=== PATIENT | female | born 1970 | race Caucasian/White ===

== ENCOUNTER 2016-11-23 11:18 | Emergency (ER) | payer MEDICAID, OTHER ==
[2016-11-23 11:59] LABS: BILIRUBIN,URINE NEGATIVE (NEGATIVE); PH,URINE 5.5 PH (5.0-7.5)
[2016-11-23 12:02] LABS: HCG UR QUAL NEGATIVE; UA CHARGE (STRIP ONLY) YES; UR CULTURE IF IND NOT INDICATED
[2016-11-23] MEDS ORDERED: CYCLOBENZAPRINE 10 MG TABLET PO STA (12:33)
[2016-11-23] MEDS ORDERED: ONDANSETRON 4 MG/2 ML VIAL IVP STA (12:33)
[2016-11-23] MEDS ORDERED: SUMAtriptan 6 MG/0.5 ML VIAL SUBQ STA (12:33)
[2016-11-23] MEDS ORDERED: KETOROLAC 60 MG/2 ML VIAL IVP STA (12:33)
[2016-11-23] MEDS ORDERED: SODIUM CHLORIDE 0.9% 1,000 ML IV ONE (12:33)
--- NOTE | 2016-11-23 12:37 | ED Physician Documentation ---
PD HPI UPPER EXT INJURY - Stated complaint Stated Complaint: NICOLE,N/V, RT SHOULDER INJ - Chief complaint Chief Complaint: Ext Problem - History obtained from History obtained from: Patient - Additonal information Additional information: 46-year-old woman with history of migraines presents with 3 weeks of atraumatic right shoulder pain worse with abduction. The pain is sharp and across the top and sometimes feels the whole right hand going home. Pain radiates into the neck and causes neck spasms and over the last couple of days has caused her usual gradual onset migraine with vomiting. 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 EXHIBIT TECHNICIAN: Hysterectomy - Present Medications Home Medications: Ambulatory Orders Medication Instructions Recorded Confirmed Ondansetron HCl [Zofran] 4 mg PO DAILY 11/04/15 11/23/16 Sumatriptan [Imitrex] 25 mg PO ONCE 11/04/15 11/23/16 Cyclobenzaprine [Flexeril] 10 mg PO TID PRN #20 tablet 11/23/16 Ibuprofen 800 mg PO TID 11/23/16 11/23/16 Oxycodone HCl/Acetaminophen 1 - 2 tab PO Q4H PRN #15 tablet 11/23/16 [Percocet 5-325 mg Tablet] Physical Therapy 1 tu TD ONCE #1 11/23/16 - Allergies Allergies/Adverse Reactions: Allergies Allergy/AdvReac Type Severity Reaction Status Date / Time haloperidol [From Haldol] Allergy Unknown Verified 11/23/16 11:29 haloperidol lactate * Allergy Unknown Verified 11/23/16 11:29 [From Haldol] metoclopramide HCl * Allergy Unknown Verified 11/23/16 11:29 [From Reglan] morphine Allergy Unknown Verified 11/23/16 11:29 Penicillins Allergy Unknown Verified 11/23/16 11:29 prochlorperazine Allergy Unknown Verified 11/23/16 11:29 [From Compazine] prochlorperazine edisylate * Allergy Unknown Verified 11/23/16 11:29 [From Compazine] prochlorperazine maleate * Allergy Unknown Verified 11/23/16 11:29 [From Compazine] promethazine HCl * Allergy Unknown Verified 11/23/16 11:29 [From Phenergan] tramadol Allergy Unknown Verified 11/23/16 11:29 - Social History Does the pt smoke?: Yes Smoking Status: Current every day smoker Does the pt drink ETOH?: Yes - Immunizations Immunizations are current?: Yes PD ED PE NORMAL - Vitals Vital signs reviewed: Yes - General General: Alert and oriented X 3, No acute distress - Neck Neck: Supple, no meningeal sign, No bony TTP - Neuro Neuro: Other (Tenderness over the top of the right shoulder and difficulty with abduction past 90 with positive supraspinatus testing. NVI in the hand with symmetric reflexes, she has symmetric supervisor claims strength, thumb extension, interossei strength, flexion and extension of the wrist.) - Psych Psych: Normal mood, Normal affect Results - Vitals Vitals: Vital Signs - 24 hr 11/23/16 11:27 Temperature 36.8 C Heart Rate 99 Respiratory 14 Rate Blood Pressure 143/97 H O2 Saturation 100 Oxygen O2 Source Room air - Labs Labs: Laboratory Tests 11/23/16 11/23/16 11:35 11:35 Urine Color YELLOW Urine Clarity CLEAR Urine pH 5.5 Ur Specific [place] 1.025 Urine Protein NEGATIVE Urine Glucose (UA) NEGATIVE Urine Ketones NEGATIVE Urine Occult Blood NEGATIVE Urine Nitrite NEGATIVE Urine Bilirubin NEGATIVE Urine Urobilinogen 0.2 (NORMAL) Ur Leukocyte Esterase NEGATIVE Ur Microscopic Review NOT INDICATED Urine Culture Comments NOT INDICATED Urine HCG, Qual NEGATIVE Urine Opiates Screen NEGATIVE Ur Oxycodone Screen NEGATIVE Urine Methadone Screen NEGATIVE Ur Propoxyphene Screen NEGATIVE Ur Barbiturates Screen NEGATIVE Ur Tricyclics Screen NEGATIVE Ur Phencyclidine Scrn NEGATIVE Ur Amphetamine Screen NEGATIVE U Methamphetamines Scrn NEGATIVE U Benzodiazepines Scrn NEGATIVE Urine Cocaine Screen NEGATIVE U Cannabinoids Screen NEGATIVE - Rads (name of study) R shoulder Radiology: EMP read contemporaneously (AC joint GABBY) PD MEDICAL DECISION MAKING - ED course ED course: 46-year-old woman with right shoulder pain, atraumatic, likely rotator cuff or strain. This is caused a migraine.The headache is gradual in onset and similar to prior headaches. As such I doubt subarachnoid hemorrhage. There are no infectious symptoms such as fever or stiff neck to make me suspect meningitis. No carbon monoxide exposure. She does have multiple drug allergies. She specifically requested Dilaudid for her headache, policy of this emergency Department not prescribing injectable narcotics for headache was discussed. We settled on IV Toradol, Zofran, subcutaneous Imitrex, and a muscle relaxer. She was feeling better after the above interventions and was also given a sling , a prescription for physical therapy, and a Percocet here in addition to home going medications. 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 Shoulder pain, right Qualifiers: Chronicity: acute Qualified Code(s): M25.511 - Pain in right shoulder Migraine Qualifiers: Migraine type: without aura Status migrainosus presence: with status migrainosus Intractability: not intractable Qualified Code(s): G43.001 - Migraine without aura, not intractable, with status migrainosus Condition: Good Record reviewed to determine appropriate education?: Yes Instructions: ED Torn Rotator Cuff Prescriptions: Physical Therapy 1 TD ONCE #1 Cyclobenzaprine [Flexeril] 10 mg PO TID PRN #20 tablet PRN Reason: Pain Oxycodone HCl/Acetaminophen [Percocet 5-325 mg Tablet] 1 - 2 tab PO Q4H PRN #15 tablet PRN Reason: Pain Comments: Call your doctor to arrange a follow up appointment. Make the next available appointment. In the interim return anytime if worse or if new symptoms develop.
[2016-11-23] MEDS ORDERED: KETOROLAC 30 MG/ML VIAL ONE (13:08)
[2016-11-23] MEDS ORDERED: SUMAtriptan 6 MG/0.5 ML VIAL SUBQ ONE (13:08)
[2016-11-23] MEDS ORDERED: CYCLOBENZAPRINE 10 MG TABLET PO ONE (13:08)
[2016-11-23] MEDS ORDERED: ONDANSETRON 4 MG/2 ML VIAL ONE (13:08)
--- NOTE | 2016-11-23 13:20 | XRAY Preliminary Report ---
Exam: XR Shoulder 3 View RT IMPRESSION: 1. No fracture or dislocation. 2. There is mild acromioclavicular joint degenerative disease. [facility] SITE ID: [id number]
--- NOTE | 2016-11-23 13:23 | XRAY Report ---
EXAM: RIGHT SHOULDER RADIOGRAPHY EXAM DATE: 11/23/2016 12:51 PM. CLINICAL HISTORY: Shoulder pain. COMPARISON: None. TECHNIQUE: 3 views. FINDINGS: Bones: Normal. No fracture or bone lesion. Joints: U of joint space is within normal limits. There is mild acromioclavicular joint degenerative disease. Soft tissues: The visualized hemithorax is unremarkable. No soft tissue swelling. IMPRESSION: 1. No fracture or dislocation. 2. There is mild acromioclavicular joint degenerative disease. [facility] Referring Provider Line: [phone] SITE ID: [id number]
[2016-11-23] MEDS ORDERED: oxyCOD/ACETAMIN 5 MG/325 MG TABLET PO STA (13:30)
[2016-11-23] MEDS ORDERED: oxyCOD/ACETAMIN 5 MG/325 MG TABLET PO ONE (13:46)
[2016-11-23 14:10] VITALS: BP 138/88
== END 2016-11-23 14:09 | disposition home or self-care (01) ==
LOC: ED 11:18
DX: G43.001 Migraine without aura, not intractable, with status migrainosus (principal); M19.011 Primary osteoarthritis, right shoulder; M25.511 Pain in right shoulder; F17.200 Nicotine dependence, unspecified, uncomplicated
CPT/HCPCS: 73030; 80306; 81003; 81025; 96361; 96372; 96374; 96375; 99283; 99284; A9270; 81001; 87086

== ENCOUNTER 2018-10-02 19:10 | Emergency (ER) | payer OTHER ==
[2018-10-02 19:16] VITALS: BP 141/76
[2018-10-02] MEDS ORDERED: BUFFERED LIDOCAINE 10 ML SYRINGE SUBQ STA (19:21)
[2018-10-02] MEDS ORDERED: TETANUS/DIPHTHERIA/PERTUSSIS 0.5 ML SYRINGE IM ONE (19:21)
--- NOTE | 2018-10-02 19:23 | ED Physician Documentation ---
PD HPI UPPER EXT INJURY - Stated complaint Stated Complaint: RT THUMB LAC/INJ - Chief complaint Chief Complaint: Laceration - History obtained from History obtained from: Patient - History of Present Illness Location: Right (Right-handed woman was at work today and a knife fell and she reached and grabbed for it and cut her the right thumb. 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: Hysterectomy - Present Medications Home Medications: Ambulatory Orders Medication Instructions Recorded Confirmed Ondansetron HCl [Zofran] 4 mg PO DAILY 11/04/15 11/23/16 SUMAtriptan [Imitrex] 25 mg PO ONCE 11/04/15 11/23/16 Cyclobenzaprine [Flexeril] 10 mg PO TID PRN #20 tablet 11/23/16 Ibuprofen 800 mg PO TID 11/23/16 11/23/16 Oxycodone HCl/Acetaminophen 1 - 2 tab PO Q4H PRN #15 tablet 11/23/16 [Percocet 5-325 mg Tablet] Physical Therapy 1 tu TD ONCE #1 11/23/16 - Allergies Allergies/Adverse Reactions: Allergies Allergy/AdvReac Type Severity Reaction Status Date / Time haloperidol [From Haldol] Allergy Unknown Verified 10/02/18 19:16 haloperidol lactate * Allergy Unknown Verified 10/02/18 19:16 [From Haldol] metoclopramide HCl * Allergy Unknown Verified 10/02/18 19:16 [From Reglan] morphine Allergy Unknown Verified 10/02/18 19:16 Penicillins Allergy Unknown Verified 10/02/18 19:16 prochlorperazine Allergy Unknown Verified 10/02/18 19:16 [From Compazine] prochlorperazine edisylate * Allergy Unknown Verified 10/02/18 19:16 [From Compazine] prochlorperazine maleate * Allergy Unknown Verified 10/02/18 19:16 [From Compazine] promethazine HCl * Allergy Unknown Verified 10/02/18 19:16 [From Phenergan] tramadol Allergy Unknown Verified 10/02/18 19:16 - Social History Does the pt smoke?: Yes Smoking Status: Current every day smoker Does the pt drink ETOH?: Yes - Immunizations Immunizations are current?: Yes PD ED PE NORMAL - Vitals Vital signs reviewed: Yes - General General: Alert and oriented X 3, No acute distress - Extremities Extremities: Other (On the distal phalanx of the right thumb, mid phalanx there is a 1.5 cm laceration on the palmar side. She has normal neurovascular status at the tip, flexor tendon strength will be assessed after anesthetic.) - Neuro Neuro: Alert and oriented X 3, Normal speech Results - Vitals Vitals: Vital Signs - 24 hr 10/02/18 19:14 Temperature 36.7 C Heart Rate 100 Respiratory 18 Rate Blood Pressure 141/76 H O2 Saturation 97 Oxygen O2 Source Room air Procedures - Laceration (location) R thumb Length in cm: 1.5 Wound type: Linear, Superficial, Into subcut fat Tendon involvement: Tendon intact Anesthesia: Lidocaine 1%, With bicarb Wound Preparation: Hibiclens, Irrigated copiously NS, Debrided extensively (she had some glue and quik clot on it that needed to be debrided.) Skin layer closure: Nylon, Interrupted, Size #-0 - enter number (4-0), Sutures - enter # (5) Other: Dressing applied, Tetanus booster given Complexity: Simple Departure - Departure Disposition: 01 Home, Self Care Clinical Impression: Laceration Condition: Good Record reviewed to determine appropriate education?: Yes Instructions: ED Laceration All Comments: Come back for any signs of infection which would include: Redness, swelling, drainage, increased pain, or fevers. You can wash it soap and water. Keep it covered and moist with bacitracin ointment which is available over the counter; avoid neosporin. Follow-up with your physician in 14 days for suture removal. Your blood pressure was elevated today on check into the emergency department. This does not mean that you have hypertension, it is a common phenomenon to come to the emergency department and have elevated blood pressure. I recommend that you see your primary care physician within the week to have it rechecked when you are feeling better.
[2018-10-02] MEDS ORDERED: HYDROcod/ACET 5/325 Prepack 4 PO STA (19:50)
== END 2018-10-02 20:13 | disposition home or self-care (01) ==
LOC: ED 19:10
DX: S61.011A Laceration without foreign body of right thumb without damage to nail, initial encounter (principal); W26.0XXA Contact with knife, initial encounter; Y99.0 Civilian activity done for income or pay; F17.200 Nicotine dependence, unspecified, uncomplicated; Z23 Encounter for immunization
CPT/HCPCS: 1040M; 12001; 90471; 90715; 99282; 99283

== ENCOUNTER 2019-08-14 11:54 | Outpatient (CLI) | payer OTHER ==
--- NOTE | 2019-08-14 13:04 | XRAY Report ---
Reason: PAIN IN RT ELBOW, SHLDR, HUMERUS, RADIAL, ULNA Procedure Date: 08/14/2019 Accession Number: [id number] / [id number] Procedure: XR - Forearm RT CPT Code: Final Report FULL RESULT: EXAM: RIGHT FOREARM RADIOGRAPHY EXAM DATE: 08/14/2019 12:28 PM. CLINICAL HISTORY: Heavy object fell on right extremity. Loss of range of motion. Pain. PAIN IN RT ELBOW, SHLDR, HUMERUS, RADIAL, ULNA. COMPARISON: HUMERUS RT 08/14/2019 12:13 PM. TECHNIQUE: 2 views. FINDINGS: Bones: No acute fracture or bony lesion. Joints: Normal. No effusions or subluxations in the visualized wrist or elbow joints. Soft Tissues: No radiopaque foreign body. IMPRESSION: 1. No acute osseous abnormalities. [facility]
--- NOTE | 2019-08-14 13:06 | XRAY Report ---
Reason: PAIN IN RT ELBOW, SHLDR, HUMERUS, RADIAL, ULNA Procedure Date: 08/14/2019 Accession Number: [id number] / [id number] Procedure: XR - Shoulder 3 View RT CPT Code: Final Report FULL RESULT: EXAM: RIGHT SHOULDER RADIOGRAPHY EXAM DATE: 08/14/2019 12:13 PM. CLINICAL HISTORY: PAIN IN RT ELBOW, SHLDR, HUMERUS, RADIAL, ULNA. COMPARISON: SHOULDER 3 VIEW RT 11/23/2016 12:51 PM. TECHNIQUE: 3 views. FINDINGS: Bones: Normal. No fracture or bone lesion. Joints: Mild degenerative changes in the acromioclavicular joint. Soft tissues: The visualized hemithorax is unremarkable. No soft tissue swelling. IMPRESSION: 1. No fracture identified. 2. Mild degenerative changes in the acromioclavicular joint. [facility]
--- NOTE | 2019-08-14 13:11 | XRAY Report ---
Reason: PAIN IN RT ELBOW, SHLDR, HUMERUS, RADIAL, ULNA Procedure Date: 08/14/2019 Accession Number: [id number] / [id number] Procedure: XR - Humerus RT CPT Code: Final Report FULL RESULT: EXAM: RIGHT HUMERUS RADIOGRAPHY EXAM DATE: 08/14/2019 12:13 PM. CLINICAL HISTORY: PAIN IN RT ELBOW, SHLDR, HUMERUS, RADIAL, ULNA. COMPARISON: None. TECHNIQUE: 2 views. FINDINGS: Bones: Normal. No fractures or bone lesions. Joints: Normal. No effusions or subluxations in the visualized shoulder or elbow joints. Soft Tissues: Normal. No soft tissue swelling. IMPRESSION: No fracture identified. [facility]
--- NOTE | 2019-08-14 14:52 | XRAY Report ---
Reason: ELBOW PAIN Procedure Date: 08/14/2019 Accession Number: [id number] / [id number] Procedure: XR - Elbow 3 View RT CPT Code: Final Report FULL RESULT: EXAM: RIGHT ELBOW RADIOGRAPHY EXAM DATE: 08/14/2019 12:28 PM. CLINICAL HISTORY: INJURY TO UPPER EXTREM. COMPARISON: None. TECHNIQUE: 3 views. FINDINGS: Bones: Normal. No fractures or bone lesions. Joints: Normal. No effusion. No subluxation. Soft Tissues: Amorphous calcification along the distal aspect of the triceps tendon adjacent to the olecranon. IMPRESSION: No fracture or joint effusion. [facility]
== END 2019-08-14 11:55 | disposition home or self-care (01) ==
LOC: DI 11:54
PROVIDERS: ATTEND Nurse Practitioner Family
DX: S44.91XA Injury of unspecified nerve at shoulder and upper arm level, right arm, initial encounter (principal); M19.011 Primary osteoarthritis, right shoulder; M25.521 Pain in right elbow

== ENCOUNTER 2020-06-26 09:56 | Outpatient (CLI) | payer BC ==
--- NOTE | 2020-06-26 13:37 | XRAY Report ---
PROCEDURE: Knee 3 View LT INDICATIONS: PAIN IN LEFT KNEE TECHNIQUE: 3 views of the left knee(s) were acquired. COMPARISON: None. FINDINGS: Bones: No fractures or dislocations. No suspicious bony lesions. Minimal medial compartment degener ative narrowing. Soft tissues: Mild joint effusion. No suspicious soft tissue calcifications. IMPRESSION: Early medial compartment arthritic change. No visualized acute fracture or dislocation. However, occult injury cannot be excluded. Recommend short interval imaging follow-up in 7-10 days as clinically indicated for additional evaluation. Reviewed by: Robyn Rincon MD on 06/26/2020 1:36 PM PST Approved by: Robyn Rincon MD on 06/26/2020 1:36 PM [facility] Station ID: [id number]
== END 2020-06-26 09:57 | disposition home or self-care (01) ==
LOC: DI.S 09:56
PROVIDERS: ATTEND Nurse Practitioner Family
DX: M25.562 Pain in left knee (principal)

== ENCOUNTER 2020-10-08 07:11 | Emergency (ER) | payer BC ==
[2020-10-08] MEDS ORDERED: ONDANSETRON 4 MG/2 ML VIAL IVP STA ×2 (07:24→09:17)
[2020-10-08] MEDS ORDERED: KETOROLAC 30 MG/ML VIAL IVP STA (07:24)
[2020-10-08] MEDS ORDERED: HYDROmorphone 1 MG/ML CARPUJECT IM STA (07:24)
--- NOTE | 2020-10-08 07:25 | ED Physician Documentation ---
PD HPI ABD PAIN - Stated complaint Stated Complaint: VOMITING/RT FLANK PX - Chief complaint Chief Complaint: Abd Pain - History obtained from History obtained from: Patient - Additional information Additional information: 50-year-old woman with history of hysterectomy presents with mild right-sided abdominal pain for the last couple of days but much more severe this morning associated with some diarrhea and vomiting. She is had kidney stones and endometriosis in the past but this is not similar to those pains. Pain is kind of diffuse on the right side but centered in the right mid and upper abdomen, radiating to the back to. 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 - Present Medications Home Medications: Ambulatory Orders Medication Instructions Recorded Confirmed Ondansetron HCl [Zofran] 4 mg PO DAILY 11/04/15 11/23/16 SUMAtriptan [Imitrex] 25 mg PO ONCE 11/04/15 11/23/16 Cyclobenzaprine [Flexeril] 10 mg PO TID PRN #20 tablet 11/23/16 Ibuprofen 800 mg PO TID 11/23/16 11/23/16 Oxycodone HCl/Acetaminophen 1 - 2 tab PO Q4H PRN #15 tablet 11/23/16 [Percocet 5-325 mg Tablet] Physical Therapy 1 tu TD ONCE #1 11/23/16 Ondansetron Odt [Zofran] 4 mg TL Q6H PRN #10 tablet 10/08/20 Oxycodone HCl/Acetaminophen 1 - 2 each PO Q6H PRN #10 tablet 10/08/20 [Percocet 5-325 mg Tablet] - Allergies Allergies/Adverse Reactions: Allergies Allergy/AdvReac Type Severity Reaction Status Date / Time haloperidol [From Haldol] Allergy Unknown Verified 10/08/20 07:15 haloperidol lactate * Allergy Unknown Verified 10/08/20 07:15 [From Haldol] metoclopramide HCl * Allergy Unknown Verified 10/08/20 07:15 [From Reglan] morphine Allergy Unknown Verified 10/08/20 07:15 Penicillins Allergy Unknown Verified 10/08/20 07:15 prochlorperazine Allergy Unknown Verified 10/08/20 07:15 [From Compazine] prochlorperazine edisylate * Allergy Unknown Verified 10/08/20 07:15 [From Compazine] prochlorperazine maleate * Allergy Unknown Verified 10/08/20 07:15 [From Compazine] promethazine HCl * Allergy Unknown Verified 10/08/20 07:15 [From Phenergan] tramadol Allergy Unknown Verified 10/08/20 07:15 - Social History Does the pt smoke?: Yes Smoking Status: Current every day smoker Does the pt drink ETOH?: Yes Does the pt have substance abuse?: No - Immunizations Immunizations are current?: Yes - POLST Patient has POLST: No PD ED PE NORMAL - Vitals Vital signs reviewed: Yes - General General: Alert and oriented X 3, No acute distress - HEENT HEENT: PERRL, EOMI - Neck Neck: Supple, no meningeal sign, No bony TTP - Cardiac Cardiac: RRR, No murmur - Respiratory Respiratory: No respiratory distress, Clear bilaterally - Abdomen Abdomen: Normal bowel sounds, Soft, Other (Exquisitely tender in the right upper abdomen with positive Clay sign, mild right lower quadrant tenderness, no flank tenderness.) - Back Back: No CVA TTP, No spinal TTP - Derm Derm: Normal color, Warm and dry - Extremities Extremities: No edema, No calf tenderness / cord - Neuro Neuro: Alert and oriented X 3, Normal speech Results - Vitals Vitals: Vital Signs - 24 hr 10/08/20 10/08/20 07:15 09:10 Temperature 36.3 C L Heart Rate 95 81 Respiratory 20 19 Rate Blood Pressure 152/85 H 139/80 H O2 Saturation 97 93 Oxygen O2 Source Room air - Labs Labs: Laboratory Tests 10/08/20 10/08/20 10/08/20 07:29 07:29 07:56 WBC 13.6 H RBC 5.35 Hgb 15.8 Hct 46.9 MCV 87.7 MCH 29.5 MCHC 33.7 RDW 12.1 Plt Count 411 MPV 9.3 Neut # (Auto) 11.6 H Lymph # (Auto) 1.2 L Parker # (Auto) 0.7 Eos # (Auto) 0.1 Baso # (Auto) 0.1 Absolute Nucleated RBC 0.00 Nucleated RBC % 0.0 Sodium 142 Potassium 3.4 L Chloride 106 Carbon Dioxide 23 Anion Gap 13.0 BUN 14 Creatinine 0.7 Estimated GFR (MDRD) 89 Glucose 110 H Calcium 9.8 Total Bilirubin 1.3 H AST 21 ALT 17 Alkaline Phosphatase 91 Total Protein 8.4 H Albumin 5.1 Globulin 3.3 Albumin/Globulin Ratio 1.5 Lipase 51 Urine Color YELLOW Urine Clarity CLEAR Urine pH 5.5 Ur Specific [place] 1.025 Urine Protein NEGATIVE Urine Glucose (UA) NEGATIVE Urine Ketones NEGATIVE Urine Occult Blood NEGATIVE Urine Nitrite NEGATIVE Urine Bilirubin NEGATIVE Urine Urobilinogen 0.2 (NORMAL) Ur Leukocyte Esterase NEGATIVE Ur Microscopic Review NOT INDICATED Urine Culture Comments NOT INDICATED - Rads (name of study) RUQ sono Radiology: EMP read contemporaneously (1.9 cm hyperechoic lesion in the caudate lobe, likely hemangioma, mild to moderate hepatic steatosis, otherwise negative study with normal gallbladder no gallstones.) CT A/P Radiology: EMP read contemporaneously (Hypoenhancing structure in the caudate lobe of the liver corresponding to hepatic hemangioma seen on ultrasound, otherwise negative study.) PD MEDICAL DECISION MAKING - ED course ED course: 50-year-old woman with right upper quadrant pain, most consistent with biliary source on exam, but ultrasound negative for abnormality there and this was followed by CT, also basically negative study although the incidental findings were discussed with her including hepatic steatosis and likely hemangioma in the liver. She was treated stepwise with medications here and appeared comfortable prior to discharge with no residual abdominal tenderness prior to discharge and repeat examination at 10:15 AM. Departure - Departure Disposition: 01 Home, Self Care Clinical Impression: Abdominal pain Qualifiers: Abdominal location: right upper quadrant Qualified Code(s): R10.11 - Right upper quadrant pain Condition: Good Record reviewed to determine appropriate education?: Yes Instructions: ED Abdominal Pain Unkn Cause Prescriptions: Oxycodone HCl/Acetaminophen [Percocet 5-325 mg Tablet] 1 - 2 each PO Q6H PRN #10 tablet PRN Reason: pain Ondansetron Odt [Zofran] 4 mg TL Q6H PRN #10 tablet PRN Reason: Nausea / Vomiting Comments: As discussed, the cause of your abdominal pain is not completely clear. Your gallbladder is normal. You do have a hepatic hemangioma which should be asymptomatic but you can discuss with your doctor if they would like to repeat an ultrasound in 3 months to confirm stability. Please return if you develop new or worsening symptoms or do not improve over the next 24 hours. Follow-up with your doctor regardless.
[2020-10-08 07:45] LABS: BASOPHILS # (AUTO) 0.1 10^3/uL (0.0-0.1); BASOPHILS % (AUTO) 0.5 %; EOSINOPHILS # (AUTO) 0.1 10^3/uL (0.0-0.7); EOSINOPHILS % (AUTO) 0.4 %; HCT - HEMATOCRIT 46.9 % (37.0-47.0); HGB - HEMOGLOBIN 15.8 g/dL (12.0-16.0); LYMPHOCYTES # (AUTO) 1.2 10^3/uL (1.5-3.5); LYMPHOCYTES % (AUTO) 8.4 %; MEAN CORPUSCULAR HEMOGLOBIN 29.5 pg (27.0-31.0); MEAN CORPUSCULAR HGB CONC 33.7 g/dL (32.0-36.0); MEAN CORPUSCULAR VOLUME 87.7 fL (81.0-99.0); MEAN PLATELET VOLUME 9.3 fL (7.9-10.8); MONOCYTES # (AUTO) 0.7 10^3/uL (0.0-1.0); MONOCYTES % (AUTO) 5.4 %; NEUTROPHILS # (AUTO) 11.6 10^3/uL (1.5-6.6); PLT - PLATELET COUNT 411 10^3/uL (130-450); RED BLOOD COUNT 5.35 10^6/uL (4.20-5.40); RED CELL DISTRIBUTION WIDTH 12.1 % (12.0-15.0); WHITE BLOOD COUNT 13.6 x10^3/uL (4.8-10.8)
[2020-10-08 07:53] LABS: ALBUMIN 5.1 g/dL (3.2-5.5); ALBUMIN/GLOBULIN RATIO 1.5 (1.0-2.2); BILIRUBIN,TOTAL 1.3 mg/dL (0.2-1.0); CALCIUM 9.8 mg/dL (8.5-10.3); CREATININE 0.7 mg/dL (0.4-1.0); POTASSIUM 3.4 mmol/L (3.5-5.0); TOTAL PROTEIN 8.4 g/dL (6.7-8.2)
[2020-10-08] MEDS ORDERED: HYDROmorphone 1 MG/ML CARPUJECT IVP STA ×2 (08:01→09:17)
[2020-10-08 08:08] LABS: BILIRUBIN,URINE NEGATIVE (NEGATIVE); GLUCOSE, URINE (UA) NEGATIVE (NEGATIVE); KETONES,URINE (UA) NEGATIVE (NEGATIVE); LEUKOCYTE ESTERASE, URINE NEGATIVE (NEGATIVE); NITRITE,URINE NEGATIVE (NEGATIVE); OCCULT BLOOD,URINE NEGATIVE (NEGATIVE); PH,URINE 5.5 PH (5.0-7.5); PROTEIN,URINE NEGATIVE (NEGATIVE); UROBILINOGEN,URINE 0.2 (NORMAL) E.U./dL (NORMAL)
[2020-10-08 08:09] LABS: CLARITY,URINE CLEAR (CLEAR)
[2020-10-08] MEDS ORDERED: IOPAMIDOL-300 100 ML VIAL ONE (09:26)
--- NOTE | 2020-10-08 09:32 | Ultrasound Report ---
PROCEDURE: Abdomen Limited INDICATIONS: RUQ pain TECHNIQUE: Real-time focused scanning was performed of the abdomen, with image documentation. COMPARISON: None FINDINGS: Visualized portions of the pancreas are normal. No intrahepatic or extrahepatic biliary ductal dilatation. The gallbladder appears normally distended without wall thickening, sludge, gallstone, wall thickenin g, or pericholecystic fluid. There is a hyperechoic lesion in the caudate lobe measuring approximately 1.9 cm, most likely represe nting hemangioma. Diffusely increased hepatic parenchymal echogenicity is suggestive of mild to moder ate hepatic steatosis. IMPRESSION: [id number] hepatic steatosis. Approximately 1.9 cm hyperechoic lesion in the caudate lobe, likely hemangioma. No acute abnormality. Reviewed by: Ronnie Ayala MD on 10/08/2020 9:31 AM PDT Approved by: Ronnie Ayala MD on 10/08/2020 9:31 AM PDT Station ID: [id number]
[2020-10-08] MEDS ORDERED: IOPAMIDOL-300 100 ML VIAL IVP ONE (09:50)
--- NOTE | 2020-10-08 10:06 | CT Report ---
PROCEDURE: Abdomen/Pelvis W INDICATIONS: IV only, R abd pain CONTRAST: IV CONTRAST: Isovue 300 ml: 100 PO CONTRAST: *NO PO CONTRAST TECHNIQUE: After the administration of nonionic contrast, 5 mm thick sections acquired from the diaphragms to th e symphysis. 5 mm thick coronal and sagittal reformats were acquired. For radiation dose reduction, the following was used: automated exposure control, adjustment of mA and/or kV according to patient size. COMPARISON: Abdominal ultrasound same day, limited. FINDINGS: Image quality: Excellent. ABDOMEN: Lung bases: Lung bases are clear. Heart size is normal. Solid organs: Liver and spleen are normal in size and enhancement except for presence of a 1.8 cm hy podense structure at the caudate lobe of the liver, as seen also on ultrasound same day as a hyperech oic focus with increased through transmission, most likely a hepatic hemangioma. Gallbladder appears normal Biliary system is non dilated. Pancreas enhances normally. No adrenal nodules. Kidneys de monstrate normal size and enhancement, without hydronephrosis. Peritoneum and bowel: Bowel loops demonstrate normal wall thickness and caliber. No free fluid or a ir. Nodes and vessels: No retroperitoneal or mesenteric adenopathy by size criteria. Aorta and inferior vena cava are normal in size. Miscellaneous: No ventral hernias. PELVIS: Genitourinary: Bladder wall thickness is normal. Miscellaneous: No inguinal hernias or adenopathy. Scattered pelvic phleboliths. Bones: No suspicious bony lesions. No vertebral body compression fractures. IMPRESSION: Ovoid hypoenhancing structure at the caudate lobe of the liver, which correlates with an area of increased echotexture with increased through transmission seen on ultrasound imaging also ob tained today, most consistent with a hepatic hemangioma. If clinically desired this structure could b e further assessed in 3 months with a targeted single organ ultrasound to confirm stability of appear ance over time. A definite source of reported right abdominal pain is not seen. No CT evidence of cholecystitis, bili alina obstruction, urinary tract abnormality, pancreatitis, or appendicitis. Reviewed by: Miguel Asencio MD on 10/08/2020 10:05 AM PDT Approved by: Miguel Asencio MD on 10/08/2020 10:05 AM PDT Station ID: [id number]
[2020-10-08 10:25] VITALS: BP 125/80
== END 2020-10-08 10:26 | disposition home or self-care (01) ==
LOC: ED 07:11
DX: R10.11 Right upper quadrant pain (principal); K76.0 Fatty (change of) liver, not elsewhere classified; F17.200 Nicotine dependence, unspecified, uncomplicated; Z79.899 Other long term (current) drug therapy; Z90.710 Acquired absence of both cervix and uterus
CPT/HCPCS: 36415; 74177; 76705; 80053; 81003; 83690; 85025; 96372; 96374; 96375; 96376; 99284; J1170; Q9967; 81001; 87086

== ENCOUNTER 2021-01-09 11:06 | Emergency (ER) | payer BC ==
[2021-01-09] MEDS ORDERED: HYDROmorphone 1 MG/ML CARPUJECT IVP STA ×2 (11:52→13:11)
[2021-01-09] MEDS ORDERED: SODIUM CHLORIDE 0.9% 1,000 ML IV STA (11:52)
[2021-01-09] MEDS ORDERED: ONDANSETRON 4 MG/2 ML VIAL IVP STA (11:52)
[2021-01-09] MEDS ORDERED: KETOROLAC 30 MG/ML VIAL IVP STA ×2 (11:52→13:11)
--- NOTE | 2021-01-09 11:55 | ED Physician Documentation ---
History of Present Illness - Stated complaint Stated Complaint: HEADACHE - Chief complaint Chief Complaint: Neuro - Additonal information Additional information: 50-year-old female who has a history of migraines presents to the emergency depa rtment for evaluation of an unabated headache for 3 days. Her migraines typically occur once or twice a month and are usually relieved with Imitrex but not effective now after 3 days. She does endorse some visual auras in her right eye as well as noise and light sensitivity. Some nausea and vomiting though it is typically relieved with Zofran. No fevers neck pain. No history of trauma. This headache is not different than her typical migraines though it has lasted longer than she would like. Patient is vaccinated for COVID-19. Denies alcohol drug or tobacco use. Review of Systems Constitutional: denies: Fever, Chills Eyes: reports: Photophobia. denies: Discharge, Irritation Ears: reports: Other (Noise sensitivity) Nose: reports: Reviewed and negative Throat: reports: Reviewed and negative Cardiac: reports: Reviewed and negative Respiratory: reports: Reviewed and negative GI: reports: Nausea. denies: Vomiting : reports: Reviewed and negative Skin: reports: Reviewed and negative Neurologic: reports: Headache. 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: Hysterectomy - Present Medications Home Medications: Ambulatory Orders Medication Instructions Recorded Confirmed SUMAtriptan [Imitrex] 25 mg PO ONCE 11/04/15 01/09/21 Ondansetron Odt [Zofran] 4 mg TL Q6H PRN #10 tablet 10/08/20 01/09/21 - Allergies Allergies/Adverse Reactions: Allergies Allergy/AdvReac Type Severity Reaction Status Date / Time haloperidol [From Haldol] Allergy Unknown Verified 01/09/21 11:27 haloperidol lactate * Allergy Unknown Verified 01/09/21 11:27 [From Haldol] metoclopramide HCl * Allergy Unknown Verified 01/09/21 11:27 [From Reglan] morphine Allergy Unknown Verified 01/09/21 11:27 Penicillins Allergy Unknown Verified 01/09/21 11:27 prochlorperazine Allergy Unknown Verified 01/09/21 11:27 [From Compazine] prochlorperazine edisylate * Allergy Unknown Verified 01/09/21 11:27 [From Compazine] prochlorperazine maleate * Allergy Unknown Verified 01/09/21 11:27 [From Compazine] promethazine HCl * Allergy Unknown Verified 01/09/21 11:27 [From Phenergan] tramadol Allergy Unknown Verified 01/09/21 11:27 - Social History Does the pt smoke?: Yes Smoking Status: Current every day smoker Does the pt drink ETOH?: Yes Does the pt have substance abuse?: No - Immunizations Immunizations are current?: Yes - POLST Patient has POLST: No PD ED PE EXPANDED - General General: Alert, No acute distress, Well developed/nourished - Neck Neck: Supple w/out meningeal sx - Cardiac Cardiac: Regular Rate, Radial strong equal, Cap refill < 2 sec - Respiratory Respiratory: Clear to ausultation gayle. No: Distress, Labored - Abdomen Abdomen: Normal Bowel sounds. No: Tender to palpation - Back Back: Normal exam - Derm Derm: Normal color, Warm and dry. No: Rash - Extremities Extremities: Normal. No: Deformity, Tenderness - Neuro Neuro: Alert and Oriented X 3, CNII-XII intact, Normal gait, Normal finger nose, Normal speech - GCS Eye Opening: Spontaneous Motor: Obeys Commands Verbal: Oriented Total: 15 Results - Vitals Vitals: Vital Signs - 24 hr 01/09/21 11:24 Temperature 36.4 C L Heart Rate 73 Respiratory 20 Rate Blood Pressure 137/76 H O2 Saturation 96 Oxygen O2 Source Room air PD MEDICAL DECISION MAKING - ED course Complexity details: reviewed results, re-evaluated patient, d/w patient ED course: This is a well-appearing 50-year-old female that presents the emergency department for evaluation of a migraine headache that has been persistent for 3 days and unrelieved with Imitrex at home. She states that this is typical of her headaches though lasting longer than normal. She is requesting IV fluids, Zofran, Toradol and Dilaudid. Neurological exam is unremarkable and no history to suggest tremor and cranial bleeding or meningitis. Initially patient was given IV fluids Toradol and Dilaudid. She reported that the symptoms had begun to improve but not fully go away. We will repeat the dosing of Dilaudid and Toradol and at that point patient feels that she is ready for discharge home. Emergent return precautions were discussed for worsening symptoms. Departure - Departure Disposition: 01 , Self Care Clinical Impression: Migraine Qualifiers: Migraine type: with aura Status migrainosus presence: without status migrainosus Intractability: not intractable Qualified Code(s): G43.109 - Migraine with aura, not intractable, without status migrainosus Condition: Stable Record reviewed to determine appropriate education?: Yes Comments: Wendy I am glad that your headache is starting to feel better. It is important that you go home and attempt to get plenty of rest. As the headache is improving here in the emergency department I would expect that after adequate sleep that you wake up feeling markedly better. If at any point you feel that your headache is worsening, you develop fevers uncontrolled vomiting have slurred speech or weakness in your arms or legs and please return immediately to the ER.
[2021-01-09 14:07] VITALS: BP 134/72
== END 2021-01-09 14:11 | disposition home or self-care (01) ==
LOC: ED 11:06
DX: G43.109 Migraine with aura, not intractable, without status migrainosus (principal); F17.200 Nicotine dependence, unspecified, uncomplicated
CPT/HCPCS: 96374; 96375; 96376; 99283; 99284; J1170

== ENCOUNTER 2021-01-26 12:24 | Outpatient (CLI) | payer BC ==
--- NOTE | 2021-02-04 15:25 | Mammography Report ---
BILATERAL DIGITAL SCREENING MAMMOGRAM 3D/2D: 01/26/2021 CLINICAL: Baseline exam. Routine screening. Comparison is made to exam dated: 12/14/2012 mammogram - [facility]. The tissue of both breasts is predominantly fatty. No significant masses, calcifications, or other findings are seen in either breast. IMPRESSION: NEGATIVE There is no mammographic evidence of malignancy. A 1 year screening mammogram is recommended. This exam was interpreted at Station ID: [id number]. NOTE: For mammograms, a report in lay terms will be sent to the patient. Approximately 15% of breast malignancies will not be visualized mammographically. In the management of a palpable breast mass, a negative mammogram must not discourage biopsy of a clinically suspicious lesion. Electronically Signed By: Juwan Solis M.D. aty/:02/04/2021 06:44:39 ACR BI-RADS Category 1: Negative 3341F PARENCHYMAL PATTERN: (F) - The breast(s) demonstrate(s) diffuse fatty replacement. BI-RADS CATEGORY: (1) - 1 RECOMMENDATION: (ANNUAL) - Recommend routine annual screening mammography. [id number] 1 year screening LATERALITY: (B)
== END 2021-01-26 12:25 | disposition home or self-care (01) ==
LOC: DI.S 12:24
DX: Z12.31 Encounter for screening mammogram for malignant neoplasm of breast (principal)

== ENCOUNTER 2021-02-08 07:53 | Outpatient (CLI) | payer BC ==
--- NOTE | 2021-02-08 10:37 | Ultrasound Report ---
PROCEDURE: Abdomen Limited INDICATIONS: ABN FINDINGS ON CT, THYROID NODULE TECHNIQUE: Real-time focused scanning was performed of the abdomen, with image documentation. COMPARISON: 10/08/2020, ultrasound and CT. FINDINGS: The liver demonstrates normal size and demonstrates mildly increased background echogenici ty. There is a hyperechoic well-defined nonvascular focus within the caudate lobe that measures 2 x 1 x 2 cm, which previously measured 1.8 x 1.2 x 1.9 cm. No gallstones or sludge can be seen. The gallbladder wall does not appear thickened. There is no spec ific pericholecystic fluid. The sonographic Clay's sign is negative. No biliary ductal dilatation is seen. The common bile duct measures 2 mm. The visualized pancreas is within normal limits. IMPRESSION: Stable hyperechoic lesion seen within the caudate lobe of the liver, which is attributed to a benign hemangioma. Mild fatty liver infiltration. Reviewed by: Akbar Patton MD on 02/08/2021 9:35 AM [facility] Approved by: Akbar Patton MD on 02/08/2021 9:35 AM [facility] Station ID: [id number]
--- NOTE | 2021-02-08 10:41 | Ultrasound Report ---
PROCEDURE: Head or Neck Soft Tissue INDICATIONS: ABN FINDINGS ON CT, THYROID NODULE TECHNIQUE: Real-time scanning was performed of the thyroid gland, with image documentation. COMPARISON: None FINDINGS: Right: Thyroid lobe measures 2.7 x 2 x 2.2 cm. Left: Thyroid lobe measures 3.7 x 1.4 x 1.4 cm, and is homogenous in echotexture. Isthmus: 1 mm thick. Nodule number: 1 Location: Right mid thyroid Size: 2.8 x 1.7 x 2 cm. Composition: Solid Echogenicity: Isoechoic Shape: wider than tall. Margins: Smooth Echogenic foci: None Total points: 3 ACR TI-RADS category: 3 IMPRESSION: A 2.8 cm right thyroid nodule can be seen. By published criteria, no specific follow-up is recommended. ACR TI-RADS definitions and recommendations: TI-RADS 1 (benign): 0 points. FNA not needed. TI-RADS 2 (not suspicious): 2 points. FNA not needed. TI-RADS 3 (mildly suspicious): 3 points. ? FNA if 2.5 cm or larger, follow up if 1.5 cm or larger (at 1, 3, and 5 years). TI-RADS 4 (moderately suspicious): 4-6 points. ? FNA if 1.5 cm or larger, follow up if 1 cm or larger (at 1, 2, 3, and 5 years). TI-RADS 5 (highly suspicious): 7 points or more. ? FNA if 1 cm or larger, follow up if 0.5 cm or larger (every year for 5 years). Reviewed by: Akbar Patton MD on 02/08/2021 9:40 AM [facility] Approved by: Akbar Patton MD on 02/08/2021 9:40 AM [facility] Station ID: [id number]
== END 2021-02-08 07:54 | disposition home or self-care (01) ==
LOC: DI 07:53
PROVIDERS: ATTEND Nurse Practitioner Family
DX: D18.09 Hemangioma of other sites (principal); K76.0 Fatty (change of) liver, not elsewhere classified; E04.1 Nontoxic single thyroid nodule

== ENCOUNTER 2021-03-30 12:13 | Outpatient (CLI) | payer BC ==
[2021-03-30 18:03] LABS: BASOPHILS # (AUTO) 0.1 10^3/uL (0.0-0.1); BASOPHILS % (AUTO) 0.7 %; EOSINOPHILS # (AUTO) 0.2 10^3/uL (0.0-0.7); EOSINOPHILS % (AUTO) 1.6 %; HCT - HEMATOCRIT 44.3 % (37.0-47.0); HGB - HEMOGLOBIN 14.9 g/dL (12.0-16.0); LYMPHOCYTES # (AUTO) 1.9 10^3/uL (1.5-3.5); LYMPHOCYTES % (AUTO) 19.9 %; MEAN CORPUSCULAR HEMOGLOBIN 30.4 pg (27.0-31.0); MEAN CORPUSCULAR HGB CONC 33.6 g/dL (32.0-36.0); MEAN CORPUSCULAR VOLUME 90.4 fL (81.0-99.0); MEAN PLATELET VOLUME 9.8 fL (7.9-10.8); MONOCYTES # (AUTO) 0.8 10^3/uL (0.0-1.0); MONOCYTES % (AUTO) 7.9 %; NEUTROPHILS # (AUTO) 6.7 10^3/uL (1.5-6.6); NEUTROPHILS % (AUTO) 69.5 %; PLT - PLATELET COUNT 414 10^3/uL (130-450); RED CELL DISTRIBUTION WIDTH 11.8 % (12.0-15.0); WHITE BLOOD COUNT 9.7 x10^3/uL (4.8-10.8)
[2021-03-30 18:16] LABS: PT - PROTHROMBIN TIME 11.4 secs (9.9-12.6)
== END 2021-03-30 12:14 | disposition home or self-care (01) ==
LOC: LAB.S 12:13
PROVIDERS: ATTEND Nurse Practitioner Family
DX: R23.8 Other skin changes (principal)
CPT/HCPCS: 36415; 85025; 85610

== ENCOUNTER 2021-07-04 14:23 | Outpatient (CLI) | payer BC ==
--- NOTE | 2021-07-04 16:57 | XRAY Report ---
PROCEDURE: Chest 2 View X-Ray INDICATIONS: RIGHT LOWER RIB PAIN TECHNIQUE: 2 view(s) of the chest. COMPARISON: None. FINDINGS: Surgical changes and devices: None. Lungs and pleura: No pleural effusions or pneumothorax. Lungs are clear. Mediastinum: Mediastinal contours are normal. Heart size is normal. Bones and chest wall: No suspicious bony abnormalities. Soft tissues appear unremarkable. IMPRESSION: No acute process. Reviewed by: Latasha Grigsby MD on 07/04/2021 4:55 PM [facility] Approved by: Latasha Grigsby MD on 07/04/2021 4:55 PM [facility] Station ID: [id number]
== END 2021-07-04 23:59 | disposition home or self-care (01) ==
LOC: DI.S 14:23
PROVIDERS: ATTEND Physician Assistant
DX: R07.81 Pleurodynia (principal)

== ENCOUNTER 2022-02-04 11:50 | Emergency (ER) | payer BC ==
--- NOTE | 2022-02-04 12:45 | ED Physician Documentation ---
PD HPI HEADACHE - Stated complaint Stated Complaint: MIGRAINE - Chief complaint Chief Complaint: Neuro - History obtained from History obtained from: Patient - History of Present Illness Timing - onset: Yesterday Timing - onset during: Light activity Timing - duration: Days (06/08) Timing - details: Gradual onset, Still present Worst headache ever?: No: Worst headache ever? Location: Front, Right Quality: Throbbing, Aching Associated symptoms: Fever Contributing factors: No: Hypertension, Recent illness, Trauma Similar symptoms before: Diagnosis (history of migraines and also occasional cluster type headaches.) Recently seen: Not recently seen Review of Systems Constitutional: denies: Fever, Chills, Myalgias Eyes: reports: Photophobia. denies: Loss of vision Nose: denies: Rhinorrhea / runny nose, Congestion Throat: denies: Sore throat Respiratory: denies: Cough GI: reports: Nausea, Vomiting. denies: Abdominal Pain, Diarrhea Neurologic: reports: Headache. 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 - Present Medications Home Medications: Ambulatory Orders Medication Instructions Recorded Confirmed SUMAtriptan [Imitrex] 25 mg PO ONCE 11/04/15 01/09/21 Ondansetron Odt [Zofran] 4 mg TL Q6H PRN #10 tablet 10/08/20 01/09/21 - Allergies Allergies/Adverse Reactions: Allergies Allergy/AdvReac Type Severity Reaction Status Date / Time haloperidol [From Haldol] Allergy Unknown Verified 02/04/22 12:00 haloperidol lactate * Allergy Unknown Verified 02/04/22 12:00 [From Haldol] metoclopramide HCl * Allergy Unknown Verified 02/04/22 12:00 [From Reglan] morphine Allergy Unknown Verified 02/04/22 12:00 Penicillins Allergy Unknown Verified 02/04/22 12:00 prochlorperazine Allergy Unknown Verified 02/04/22 12:00 [From Compazine] prochlorperazine edisylate * Allergy Unknown Verified 02/04/22 12:00 [From Compazine] prochlorperazine maleate * Allergy Unknown Verified 02/04/22 12:00 [From Compazine] promethazine HCl * Allergy Unknown Verified 02/04/22 12:00 [From Phenergan] tramadol Allergy Unknown Verified 02/04/22 12:00 - Social History Does the pt smoke?: Yes Smoking Status: Current every day smoker Does the pt drink ETOH?: Yes Does the pt have substance abuse?: No - Immunizations Immunizations are current?: Yes - POLST Patient has POLST: No PD ED PE NORMAL - Vitals Vital signs reviewed: Yes - General General: Alert and oriented X 3, No acute distress, Well developed/nourished - HEENT HEENT: Atraumatic - Neck Neck: Supple, no meningeal sign, No bony TTP, No adenopathy - Cardiac Cardiac: RRR, No murmur - Respiratory Respiratory: Clear bilaterally - Back Back: No CVA TTP - Derm Derm: Normal color, Warm and dry - Extremities Extremities: No tenderness to palpate, Normal ROM s pain - Neuro Neuro: Alert and oriented X 3, 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 No residual headache. ), considered differential (has migraine seeming NICOLE, but also some component of stabbing behind left eye (some cluster type symptoms).), d/w patient Departure - Departure Disposition: 01 Home, Self Care Clinical Impression: Migraine headache Qualifiers: Migraine type: without aura Status migrainosus presence: with status migrainosus Intractability: not intractable Qualified Code(s): G43.001 - Migraine without aura, not intractable, with status migrainosus Condition: Stable Instructions: ED Headache Migraine Follow-Up: Krystle Osborne ARNP [Primary Care Provider] - Comments: Stay well-hydrated and rest today. Usual medications at home. Return to the ER if needed for recurrent headache. Discharge Date/Time: 02/04/22 15:25
[2022-02-04] MEDS ORDERED: ONDANSETRON 4 MG/2 ML VIAL IVP STA (13:03)
[2022-02-04] MEDS ORDERED: DEXAMETHASONE 10 MG/ML VIAL IVP STA (13:03)
[2022-02-04] MEDS ORDERED: SODIUM CHLORIDE 0.9% 1,000 ML IV STA (13:03)
[2022-02-04] MEDS ORDERED: KETOROLAC 15 MG/ML VIAL IVP STA (13:03)
[2022-02-04] MEDS ORDERED: HYDROmorphone 0.5 MG/0.5 ML SYRINGE IVP STA (13:03)
[2022-02-04] MEDS ORDERED: HYDROmorphone 1 MG/ML CARPUJECT IVP STA (14:08)
[2022-02-04 14:47] VITALS: BP 121/75
== END 2022-02-04 15:25 | disposition home or self-care (01) ==
LOC: ED 11:50
DX: G43.001 Migraine without aura, not intractable, with status migrainosus (principal); F17.200 Nicotine dependence, unspecified, uncomplicated
CPT/HCPCS: 96361; 96374; 96375; 96376; 99284; 99285; J1170